=== PATIENT | male | born 1975 | race Caucasian/White ===

== ENCOUNTER 2016-06-23 08:30 | Day surgery (SDC) | payer OTHER ==
[2016-06-23] MEDS ORDERED: Lidocaine Topical 2% 30 mL Jelly ONE (08:50)
== END 2016-06-23 23:59 | disposition home or self-care (01) ==
LOC: END 08:30
PROVIDERS: ATTEND Internal Medicine Gastroenterology
DX: K44.9 Diaphragmatic hernia without obstruction or gangrene (principal); K21.9 Gastro-esophageal reflux disease without esophagitis